=== PATIENT | male | born 1940 | race Caucasian/White ===

== ENCOUNTER 2024-11-11 17:45 | Inpatient (IN) | payer MEDICARE, OTHER ==
[~2024-11-11] VITALS: Ht 170.2 cm; Wt 72.6 kg
[~2024-11-11 17:45] MED LIST: AMLO5TAB88 MT; ASPI-1497 MT; BRIM5DRO6 RIGHTEYE; CALC-906 PO; DORZ10DR9 EACHEYE; ERGO1250 PO; INSU100I13 SUBCUT; INSU100I28 SQ; LOSA50TA41 PO; NETA2.5D RIGHTEYE; SPIR25TA6 MT; TAMS-54 PO
[2024-11-11] MEDS ORDERED: ACETAMINOPHEN 325MG TABLET PO PRN (18:30)
[2024-11-11] MEDS ORDERED: DOCUSATE SODIUM 100MG CAPSULE PO PRN (18:30)
[2024-11-11] MEDS ORDERED: DEXTROSE 50% WATER 50ML SYRINGE IV PRN (18:30)
[2024-11-11] MEDS ORDERED: CLONIDINE 0.1MG TABLET PO PRN (18:30)
[2024-11-11] MEDS ORDERED: GUAIFENESIN 200MG/10ML SUGAR FREE UDC PO PRN (18:30)
[2024-11-11] MEDS ORDERED: MAGNESIUM/ALUMINUM HYDROXIDE/SIMETHICONE 30ML UDC PO PRN (18:30)
[2024-11-11 19:00] VITALS: BP 128/55; PULSE 95; RESP 18; TEMP 36.7
[2024-11-11 20:00] VITALS: BP 128/55; PULSE 95; RESP 18; TEMP 36.7; O2SAT 95
[2024-11-11] MEDS: BLOOD SUGAR DIAGNOSTIC STRIP TEST SCH (21:00)
[2024-11-11] MEDS: MAGNESIUM OXIDE 400MG TABLET PO SCH (21:49)
[2024-11-11] MEDS: POTASSIUM-SODIUM PHOSPHATE POWDER PACKET PO SCH (21:49)
[2024-11-11] MEDS: LATANOPROST 0.005% OPHTH DROPS 2.5ML RIGHTEYE SCH (21:50)
[2024-11-11] MEDS: PATIENT'S OWN MEDICATION RIGHTEYE SCH (21:52)
[2024-11-11 22:00] VITALS: BP 128/55; PULSE 95; RESP 18; TEMP 36.7; O2SAT 95
[2024-11-11] MEDS: BRIMONIDINE 0.2% OPHTH DROPS 5ML RIGHTEYE SCH (22:39)
[2024-11-11] MEDS: TAMSULOSIN HCL 0.4MG SR CAPSULE PO SCH (22:39)
[2024-11-11] MEDS: DORZOLAMIDE 2% OPHTH 10 ML BOTTLE BOTHEYE SCH (22:40)
[2024-11-11] MEDS: INSULIN LISPRO 100 UNITS/ML SUBCUT SCH (22:42)
[2024-11-12 08:00] VITALS: BP 125/58; PULSE 82; RESP 17; TEMP 36.7; O2SAT 99
[2024-11-12] MEDS: BRIMONIDINE 0.2% OPHTH DROPS 10ML RIGHTEYE SCH (09:14)
[2024-11-12] MEDS: MULTIVITAMINS,THER W-MINERALS TABLET PO SCH (09:15)
[2024-11-12] MEDS: CALCIUM 1250MG TABLET (500MG ELEMENTAL CALCIUM) PO SCH (09:15)
[2024-11-12] MEDS: CALCITRIOL 0.25MCG CAPSULE PO SCH (09:16)
[2024-11-12] MEDS: FAMOTIDINE 20MG TABLET PO SCH (09:16)
[2024-11-12] MEDS: AMLODIPINE 5MG TABLET PO SCH (09:16)
[2024-11-12] MEDS: LACTOBACILLUS RHAMNOSUS GG CAP PO SCH (09:16)
[2024-11-12] MEDS: INSULIN GLARGINE 100 UNITS/ML SUBCUT SCH (11:50)
[2024-11-12] MEDS: DORZOLAMIDE 2% OPHTH 10 ML BOTTLE BOTHEYE SCH (11:52)
[2024-11-12] MEDS: INSULIN LISPRO 100 UNITS/ML SUBCUT SCH (18:00)
[2024-11-12 20:00] VITALS: BP 137/62; PULSE 97; RESP 18; TEMP 36.8; O2SAT 99
[2024-11-12] MEDS: LATANOPROST 0.005% OPHTH DROPS 2.5ML BOTHEYE SCH (21:57)
[2024-11-13 08:00] VITALS: BP 130/60; PULSE 90; RESP 20; TEMP 36.1; O2SAT 97
[2024-11-13] MEDS: INSULIN LISPRO 100 UNITS/ML SUBCUT SCH ×2 (17:11→17:12)
[2024-11-13 20:00] VITALS: BP 149/64; PULSE 94; RESP 18; TEMP 36.7; O2SAT 96
[2024-11-14 08:00] VITALS: BP 132/64; PULSE 84; RESP 18; TEMP 36.7; O2SAT 100
[2024-11-14] MEDS: ACETAMINOPHEN 650MG/20.3ML UDC PO PRN (09:09)
[2024-11-14] MEDS: INSULIN GLARGINE 100 UNITS/ML SUBCUT SCH (10:06)
[2024-11-14 20:00] VITALS: BP 141/71; PULSE 102; RESP 18; TEMP 36.7; O2SAT 97
[2024-11-14] MEDS: DORZOLAM/TIMOLOL 2%/0.5% OPHTH DROPS 10ML BOTHEYE SCH (21:52)
[2024-11-15 07:09] LABS: HEMATOCRIT 29.2 % (42.0-52.0); HEMOGLOBIN 9.6 g/dL (14.0-18.0); MEAN CORPUSCULAR HEMOGLOBIN 25.7 pg (28.0-32.0); MEAN CORPUSCULAR HGB CONC 32.7 g/dL (31.0-37.0); MEAN CORPUSCULAR VOLUME 78.5 fL (80.0-94.0); PLATELET 145 x1000/uL (130-400); RED BLOOD CELL COUNT 3.72 mill/uL (4.7-6.1); RED CELL DISTRIBUTION WIDTH 19.7 % (11.6-14.6); WHITE BLOOD COUNT 4.2 x1000/uL (4.5-11.0)
[2024-11-15 07:29] LABS: CARBON DIOXIDE 22 mEq/L (21-32); CHLORIDE 103 mEq/L (98-107); POTASSIUM 3.8 mEq/L (3.5-5.1); SODIUM 132 mEq/L (136-145)
[2024-11-15 07:30] LABS: CALCIUM 7.7 mg/dL (8.7-10.4)
[2024-11-15 07:35] LABS: GLUCOSE 309 mg/dL (70-105); UREA NITROGEN BLOOD 18 mg/dL (9-23)
[2024-11-15 07:37] LABS: PHOSPHORUS 1.8 mg/dL (2.5-4.9)
[2024-11-15 08:00] VITALS: BP 127/52; PULSE 80; RESP 18; TEMP 36.1; O2SAT 98
[2024-11-15] MEDS: INSULIN LISPRO 100 UNITS/ML SUBCUT SCH (19:57)
[2024-11-15 20:00] VITALS: BP 128/58; PULSE 86; RESP 18; TEMP 36.8
[2024-11-15] MEDS: INSULIN GLARGINE 100 UNITS/ML SUBCUT SCH (22:25)
[2024-11-16 08:00] VITALS: BP 138/65; PULSE 86; RESP 18; TEMP 36; O2SAT 97
[2024-11-16] MEDS: HEPARIN 5000 UNITS/ML VIAL SUBCUT SCH (08:46)
[2024-11-16] MEDS: INSULIN LISPRO 100 UNITS/ML SUBCUT SCH (09:05)
[2024-11-16 20:00] VITALS: BP 139/70; PULSE 87; RESP 18; TEMP 36.7; O2SAT 99
[2024-11-17 00:22] VITALS: BP 13/68; PULSE 84; RESP 18; TEMP 36.3; O2SAT 97
[2024-11-17 08:00] VITALS: BP 123/61; PULSE 81; RESP 16; TEMP 36.5; O2SAT 98
[2024-11-17 20:31] VITALS: BP 129/42; PULSE 91; RESP 18; TEMP 36.7; O2SAT 99
[2024-11-18 08:00] VITALS: BP 116/52; PULSE 81; RESP 17; TEMP 36.6; O2SAT 99
[2024-11-18] MEDS ORDERED: ASCORBIC ACID 500 MG TABLET PO SCH (09:00)
[2024-11-18] MEDS: ASCORBIC ACID 500 MG TABLET PO SCH (09:32)
[2024-11-18 20:00] VITALS: BP 122/52; PULSE 76; RESP 18; TEMP 36.8; O2SAT 96
[2024-11-18] MEDS: INSULIN GLARGINE 100 UNITS/ML SUBCUT SCH (21:59)
[2024-11-19 08:00] VITALS: BP 122/57; PULSE 81; RESP 17; TEMP 36.6; O2SAT 99
[2024-11-19 20:00] VITALS: BP 125/64; PULSE 87; RESP 18; TEMP 37; O2SAT 96
[2024-11-20] MEDS: ONDANSETRON HCL 4MG TABLET PO PRN (02:24)
[2024-11-20 06:00] VITALS: BP 131/67; PULSE 88; RESP 18; TEMP 36.7; O2SAT 97
[2024-11-20 20:00] VITALS: BP 116/63; PULSE 81; RESP 19; TEMP 36.7; O2SAT 99
[2024-11-20] MEDS: INSULIN GLARGINE 100 UNITS/ML SUBCUT SCH (22:00)
[2024-11-21 07:21] LABS: CHLORIDE 101 mEq/L (98-107); HEMATOCRIT. 29.2 % (42.0-52.0); HEMOGLOBIN. 9.5 g/dL (14.0-18.0); MEAN CORPUSCULAR HEMOGLOBIN 25.4 pg (28.0-32.0); MEAN CORPUSCULAR HGB CONC 32.4 g/dL (31.0-37.0); MEAN CORPUSCULAR VOLUME 78.3 fL (80.0-94.0); MEAN PLATELET VOLUME 9.8 fl (7.4-10.4); PLATELET 70 x1000/uL (130-400); POTASSIUM 4.2 mEq/L (3.5-5.1); RED BLOOD CELL COUNT 3.74 mill/uL (4.7-6.1); RED CELL DISTRIBUTION WIDTH 19.1 % (11.6-14.6); SODIUM 134 mEq/L (136-145); WHITE BLOOD COUNT 4.4 x1000/uL (4.5-11.0)
[2024-11-21 07:22] LABS: CALCIUM 7.9 mg/dL (8.7-10.4); CARBON DIOXIDE 27 mEq/L (21-32)
[2024-11-21 07:27] LABS: GLUCOSE 190 mg/dL (70-105); UREA NITROGEN BLOOD 13 mg/dL (9-23)
[2024-11-21 07:28] LABS: ALBUMIN 2.2 g/dL (3.2-4.8)
[2024-11-21 07:29] LABS: PHOSPHORUS 2.6 mg/dL (2.5-4.9)
[2024-11-21 08:00] VITALS: BP 137/65; PULSE 84; RESP 16; TEMP 36.6; O2SAT 96
[2024-11-21 08:36] LABS: DIFFERENTIAL COMMENT 1
[2024-11-21 14:56] LABS: ANISOCYTOSIS 2+; HYPOCHROMASIA 1+; MICROCYTOSIS 1+; PLATELET ESTIMATE DECREASED
[2024-11-21 20:00] VITALS: BP 130/58; PULSE 89; RESP 19; TEMP 36.5; O2SAT 98
[2024-11-22] MEDS ORDERED: BLOOD SUGAR DIAGNOSTIC STRIP TEST SCH (07:00)
[2024-11-22 08:00] VITALS: BP 132/61; PULSE 75; RESP 18; TEMP 35.9; O2SAT 98
[2024-11-22] MEDS: BISACODYL 10MG SUPP PR SCH (09:00)
[2024-11-22 20:00] VITALS: BP 123/60; PULSE 94; RESP 18; TEMP 36.7; O2SAT 97
[2024-11-23 08:00] VITALS: BP 132/64; PULSE 89; RESP 18; TEMP 36.3; O2SAT 95
[2024-11-23 20:00] VITALS: BP 119/58; PULSE 95; RESP 17; TEMP 36.3; O2SAT 99
[2024-11-24 08:00] VITALS: BP 127/56; PULSE 86; RESP 16; TEMP 36.8; O2SAT 96
[2024-11-24] MEDS: INSULIN LISPRO 100 UNITS/ML SUBCUT SCH (13:22)
[2024-11-24 20:00] VITALS: BP 136/61; PULSE 95; RESP 19; TEMP 36.4; O2SAT 99
[2024-11-24] MEDS: INSULIN GLARGINE 100 UNITS/ML SUBCUT SCH (22:19)
[2024-11-25 08:00] VITALS: BP 131/60; PULSE 88; RESP 18; TEMP 36.5; O2SAT 98
[2024-11-25 10:08] VITALS: BP 131/60; PULSE 88; RESP 18; TEMP 36.5; O2SAT 98
[2024-11-25 20:00] VITALS: BP 141/65; PULSE 100; RESP 18; TEMP 36.7; O2SAT 96
[2024-11-26 08:00] VITALS: BP 139/66; PULSE 99; RESP 18; TEMP 36.7; O2SAT 98
[2024-11-26 20:00] VITALS: BP 122/51; PULSE 85; RESP 18; TEMP 36.7; O2SAT 95
[2024-11-27 08:00] VITALS: BP 133/54; PULSE 84; RESP 20; TEMP 36.3; O2SAT 95
[2024-11-27 20:00] VITALS: BP 113/59; PULSE 99; RESP 18; TEMP 36.9; O2SAT 99
[2024-11-27 20:49] LABS: HEMATOCRIT 30.9 % (42.0-52.0); HEMOGLOBIN 9.9 g/dL (14.0-18.0)
[2024-11-27 21:00] LABS: PROTHROMBIN TIME 10.7 sec (9.6-11.0)
[2024-11-28 08:00] VITALS: BP 147/68; PULSE 83; RESP 20; TEMP 36.9; O2SAT 99
[2024-11-28] MEDS: HEPARIN 5000 UNITS/ML VIAL SUBCUT SCH (08:58)
[2024-11-28 20:00] VITALS: BP 129/58; PULSE 84; RESP 18; TEMP 36.9; O2SAT 96
[2024-11-29 09:06] VITALS: BP 132/60; PULSE 84; RESP 18; TEMP 36.3; O2SAT 97
[2024-11-29 20:00] VITALS: BP 149/69; PULSE 102; RESP 18; TEMP 36.7; O2SAT 96
[2024-11-30 08:00] VITALS: BP 118/49; PULSE 86; RESP 20; TEMP 36.4; O2SAT 98
[2024-11-30 20:00] VITALS: BP 124/60; PULSE 89; RESP 18; TEMP 36.7; O2SAT 97
[2024-12-01 08:00] VITALS: BP 133/64; PULSE 98; RESP 16; TEMP 36.8; O2SAT 95
[2024-12-01 20:00] VITALS: BP 140/64; PULSE 90; RESP 18; TEMP 36.5; O2SAT 97
[2024-12-02 08:00] VITALS: BP 116/56; PULSE 84; RESP 19; TEMP 36.5; O2SAT 98
[2024-12-02 20:00] VITALS: BP 146/67; PULSE 92; RESP 18; TEMP 36.7; O2SAT 98
[2024-12-03 08:00] VITALS: BP 122/56; PULSE 80; RESP 17; TEMP 36.5; O2SAT 99
[2024-12-03 08:15] VITALS: BP 122/56; PULSE 80; RESP 17; TEMP 36.9; O2SAT 99
[2024-12-03 08:23] VITALS: BP 122/56; PULSE 80; TEMP 98.4; O2SAT 99
== END 2024-12-03 10:47 | DRG 91 ==
PROVIDERS: ADMIT Psychiatry & Neurology Neurology; ATTEND Internal Medicine
DX: G95.20 Unspecified cord compression (principal); L89.153 Pressure ulcer of sacral region, stage 3; L89.623 Pressure ulcer of left heel, stage 3; N17.9 Acute kidney failure, unspecified; G82.20 Paraplegia, unspecified; I10 Essential (primary) hypertension; D50.9 Iron deficiency anemia, unspecified; E11.65 Type 2 diabetes mellitus with hyperglycemia; F39 Unspecified mood [affective] disorder; H54.61 Unqualified visual loss, right eye, normal vision left eye; N40.1 Benign prostatic hyperplasia with lower urinary tract symptoms; N50.819 Testicular pain, unspecified; D53.9 Nutritional anemia, unspecified; H02.401 Unspecified ptosis of right eyelid; R32 Unspecified urinary incontinence; R15.9 Full incontinence of feces; R53.1 Weakness; R33.8 Other retention of urine; Z79.82 Long term (current) use of aspirin; Z79.4 Long term (current) use of insulin; Z79.899 Other long term (current) drug therapy
CPT/HCPCS: 36415; 80048; 80069; 82962; 83735; 84100; 85014; 85018; 85025; 85027; 85049; 92610; 93970; 97110; 97112; 97162; 97166; 97530; 97535; 97542; A4565; A4606; J1644; J1815; Q0162